=== PATIENT | female | born 1930 | race Caucasian/White ===

== ENCOUNTER 2018-03-17 12:14 | Emergency (ER) | payer OTHER ==
[~2018-03-17] VITALS: Ht 157.5 cm; Wt 55.5 kg
[2018-03-17 12:18] VITALS: Ht 157.5 cm; Wt 55.5 kg
[2018-03-17 14:24] VITALS: BP 146/86
== END 2018-03-17 14:24 | disposition home or self-care (01) ==
LOC: ED 12:14
DX: S01.01XA Laceration without foreign body of scalp, initial encounter (principal); W01.0XXA Fall on same level from slipping, tripping and stumbling without subsequent striking against object, initial encounter; Y93.89 Activity, other specified; Y92.89 Other specified places as the place of occurrence of the external cause; Y99.8 Other external cause status; I10 Essential (primary) hypertension; E11.9 Type 2 diabetes mellitus without complications
CPT/HCPCS: J1885

== ENCOUNTER 2018-08-23 02:59 | Inpatient (IN) | payer OTHER ==
[~2018-08-23] VITALS: Ht 157.5 cm; Wt 56.8 kg
[2018-08-23 03:37] LABS: BASOPHIL % 0.4 % (0-2); PLATELET COUNT 364 x10^3mcL (130-400); RED CELL DISTRIBUTION WIDTH 13.2 % (11.5-14.5)
[2018-08-23 03:46] LABS: CALCIUM 8.7 mg/dL (8.5-10.1); CHLORIDE SERUM 102 mmol/L (98-107); CREATININE SERUM 1.5 mg/dL (0.6-1.0); GLUCOSE SERUM 184 mg/dL (74-106); POTASSIUM SERUM 3.6 mmol/L (3.5-5.1); SODIUM SERUM 138 mmol/L (136-145)
[2018-08-23 03:51] LABS: ALBUMIN 3.3 g/dL (3.4-5.0); ALKALINE PHOSPHATASE 91 U/L (46-116); ALT/SGPT 12 U/L (14-59); AST/SGOT 13 U/L (15-37); BILIRUBIN TOTAL 0.52 mg/dL (0.20-1.00); TOTAL PROTEIN, SERUM 7.8 g/dL (6.4-8.2)
[2018-08-23] MEDS ORDERED: NIFEDIPINE30 MG PO (05:33)
[2018-08-23] MEDS ORDERED: BENAZEPRIL HYDR20 M1 PO (05:34)
[2018-08-23] MEDS ORDERED: LIPI20 PO (05:35)
[2018-08-23] MEDS ORDERED: ASPIR 8181 MG PO (05:35)
[2018-08-23 06:44] LABS: PHOSPHOROUS 3.7 mg/dL (2.5-4.9)
[2018-08-23 06:44] LABS: UA SPECIFIC GRAVITY 1.015 (1.005-1.035); microscopic required? YES; urine erythrocyte TRACE (NEGATIVE)
[2018-08-23 08:16] VITALS: BP 147/60
[2018-08-23 12:41] VITALS: BP 149/52
[2018-08-23 18:17] VITALS: BP 167/62
[2018-08-23 21:14] VITALS: BP 167/51
[2018-08-24 05:30] VITALS: BP 162/50
[2018-08-24 09:30] VITALS: BP 181/53
[2018-08-24 12:29] VITALS: BP 175/50
[2018-08-24 17:44] VITALS: BP 142/53
[2018-08-24 20:57] VITALS: BP 120/51
[2018-08-25 05:36] VITALS: BP 155/52
[2018-08-25 07:13] LABS: BASOPHIL % 0.6 % (0-2); PLATELET COUNT 335 x10^3mcL (130-400); RED CELL DISTRIBUTION WIDTH 13.9 % (11.5-14.5)
[2018-08-25 07:28] LABS: CALCIUM 8.7 mg/dL (8.5-10.1); CARBON DIOXIDE 28.8 mmol/L (21-32); CHLORIDE SERUM 101 mmol/L (98-107); CREATININE SERUM 2.1 mg/dL (0.6-1.0); GLUCOSE SERUM 102 mg/dL (74-106); MAGNESIUM 1.9 mg/dL (1.8-2.4); POTASSIUM SERUM 3.6 mmol/L (3.5-5.1); SODIUM SERUM 139 mmol/L (136-145)
[2018-08-25 08:44] VITALS: BP 142/62
[2018-08-25] MEDS ORDERED: PLA75 PO (08:46)
[2018-08-25] MEDS ORDERED: HYDRALAZINE HCL25 MG PO (08:48)
[2018-08-25] MEDS ORDERED: COR6 PO (08:50)
[2018-08-25] MEDS ORDERED: LASIX20 MG PO (08:50)
[2018-08-25 10:39] VITALS: BP 142/62
[2018-08-25] MEDS ORDERED: METOPROLOL TART25 M1 PO (10:39)
[2018-08-25 12:54] VITALS: BP 115/51
== END 2018-08-25 13:56 | disposition home or self-care (01) | DRG 280 ==
LOC: ED 02:59 → DU 05:25
PROVIDERS: Emergency Medicine; Family Medicine; Internal Medicine Pulmonary Disease
DX: I21.4 Non-ST elevation (NSTEMI) myocardial infarction (principal); I50.33 Acute on chronic diastolic (congestive) heart failure; N17.0 Acute kidney failure with tubular necrosis; I13.0 Hypertensive heart and chronic kidney disease with heart failure and stage 1 through stage 4 chronic kidney disease, or unspecified chronic kidney disease; Z60.2 Problems related to living alone; D64.9 Anemia, unspecified; I08.0 Rheumatic disorders of both mitral and aortic valves; I25.10 Atherosclerotic heart disease of native coronary artery without angina pectoris; E11.51 Type 2 diabetes mellitus with diabetic peripheral angiopathy without gangrene; I27.20 Pulmonary hypertension, unspecified; E11.22 Type 2 diabetes mellitus with diabetic chronic kidney disease; N18.3 Chronic kidney disease, stage 3 (moderate); E78.00 Pure hypercholesterolemia, unspecified; I25.2 Old myocardial infarction; Z95.5 Presence of coronary angioplasty implant and graft; Z90.49 Acquired absence of other specified parts of digestive tract; Z90.710 Acquired absence of both cervix and uterus; Z79.82 Long term (current) use of aspirin; Z79.899 Other long term (current) drug therapy
CPT/HCPCS: 83880; 87804; J0456; J0696; J1644; J1940; J7050; Q0092